=== PATIENT | male | born 1980 | race Caucasian/White ===

== ENCOUNTER 2017-02-08 21:15 | Emergency (ER) | payer MEDICAID, OTHER ==
[2017-02-08 22:47] VITALS: BP 147/94
== END 2017-02-08 22:47 | disposition home or self-care (01) ==
LOC: ED 21:15
DX: S63.615A Unspecified sprain of left ring finger, initial encounter (principal); M20.012 Mallet finger of left finger(s); I10 Essential (primary) hypertension; W21.01XA Struck by football, initial encounter; Y99.8 Other external cause status; Y93.61 Activity, american tackle football; Y92.89 Other specified places as the place of occurrence of the external cause
CPT/HCPCS: J1885